=== PATIENT | female | born 1960 | race Caucasian/White ===

== ENCOUNTER → 2016-04-17 | Outpatient (CLI) | payer BC, OTHER ==
[~2016-04-17] MED LIST: LIDOCAINE 1% MDV 20ML VIAL As Ordered ONE
--- NOTE | 2016-04-17 12:09 | REP ---
Digital diagnostic unilateral right breast mammography: With CAD. Two views. History: Marker clip placement views. The patient is status post stereotactic needle biopsy for microcalcifications upper outer quadrant right breast. Comparison mammography March 26, 2016. Findings: The marker clip is seen in good position relative to remaining microcalcifications from the target grouping in the upper outer quadrant of the right breast. There is no visible hematoma. Impression: Marker clip in good position. Signed by Natanael Hill MD 04/17/2016 12:33 P
--- NOTE | 2016-04-17 12:46 | REP ---
SPECIMEN RADIOGRAPHY RIGHT BREAST: HISTORY: Micro calcific grouping right breast. The patient status post stereotactic needle biopsy. Comparison mammography is from March 26, 2016. FINDINGS: Specimen radiography demonstrates innumerable microcalcifications from the target grouping in each of the removed specimens. IMPRESSION: Specimen radiography shows abundant microcalcifications. Signed by Natanael Hill MD 04/17/2016 12:50 P
--- NOTE | 2016-04-17 19:37 | REP ---
STEREOTACTIC RIGHT BREAST BIOPSY: The procedure was performed under the direct supervision of Dr. Hill. The risks and benefits of the procedure were explained to the patient and informed consent was obtained. A craniocaudal approach was utilized. The calcifications were localized using stereotactic mammographic guidance. The skin was prepped and draped in a sterile fashion. 1% lidocaine was used as a local anesthetic. A 10-gauge suction-assisted Mammotome needle was inserted and 6 core biopsy samples were obtained. Specimen radiograph demonstrates the presence of calcifications to be within the specimen. A marker clip was placed at the biopsy site. The patient tolerated the procedure well and there were no immediate complications. After the appropriate amount of monitored convalescence the patient was discharged from the department. Reviewed by VALENTE Roach 04/18/2016 02:12 PEdited and Signed by Natanael Hill MD 04/18/2016 02:25 P
== END ==
LOC: M RADPRO 10:27
PROVIDERS: ATTEND Surgery
DX: D05.11 Intraductal carcinoma in situ of right breast (principal)

== ENCOUNTER → 2016-05-08 | Day surgery (SDC) | payer BC, OTHER ==
[~2016-05-08] VITALS: Ht 160 cm; Wt 65.8 kg
[~2016-05-08] MED LIST changes: +ASPI1TAB24 PO; +BUPIVACAINE HCL 0.25% 30 ML VIAL As Ordered ONE; +BUPIVACAINE HCL 0.25% 30 ML VIAL XX ONE; +CITRTAB18 PO; +FISH1000 PO; +GLYCOPYRROLATE INJ 0.2 MG/ML 2 ML VIAL As Ordered ONE; +HYDROmorphone HCL 2 MG/ML 1ML VIAL (J1170) As Ordered ONE; +LIDOCAINE 2% INJ 100 MG/5 ML SDV (FOR ANES.) As Ordered ONE; +LR 1,000 ML IV SCH; +METHYLENE BLUE 1% 10 ML VIAL (Q9968) As Ordered ONE; +MIDAZOLAM INJ 2 MG/2 ML VIAL (J2250) As Ordered ONE; +MORPHINE 2 MG/ML 1ML SYRINGE IV PRN; +NEOSTIGMINE 1MG/ML 5 ML SYRINGE (J2710) As Ordered ONE; +NORCO, ANEXSIA 5/325MG TABLET (HYDROcodone/ACETAMINOPHEN) As Ordered ONE; +NORCO, ANEXSIA 5/325MG TABLET (HYDROcodone/ACETAMINOPHEN) PO PRN; +NORCOTAB PO; +ONDANSETRON 4MG/2ML VIAL (J2405) As Ordered ONE; +ONDANSETRON 4MG/2ML VIAL (J2405) IV PRN; +PROPOFOL 200 MG/20 ML VIAL As Ordered ONE; +SCOPOLAMINE 1.5 MG TRANSDERMAL As Ordered ONE; +SCOPOLAMINE 1.5 MG TRANSDERMAL TOP ONE; +dexameTHASONE 4 MG/ML 1ML VIAL (J1100) As Ordered ONE; +ePHEDrine SULFATE 25 MG/5 ML(5MG/ML) SYRINGE As Ordered ONE; +fentaNYL 100 MCG/2 ML INJECTION (J3010) As Ordered ONE; +fentaNYL 100 MCG/2 ML INJECTION (J3010) IV PRN
--- NOTE | 2016-05-08 14:44 | REP ---
RIGHT BREAST LOCALIZATION: The procedure was performed under the direct supervision of Dr. Calvin. The patient is status post right breast stereotactic biopsy performed on 04/17/2016. A marker clip was placed at the biopsy site. The risks and benefits of the procedure were explained to the patient, and informed consent was obtained. A lateral-medial approach was utilized. The marker clip was localized using mammographic guidance. The skin was prepped and draped in a sterile fashion. 1% Xylocaine was used as a local anesthetic. A 7.5 cm [place] needle wire system was inserted. Followup mammographic images demonstrate good needle placement. The patient tolerated the procedure well, and there were no immediate complications. Reviewed by VALENTE Roach 05/08/2016 04:34 PEdited and Signed by Raf Calvin MD 05/08/2016 05:26 P
--- NOTE | 2016-05-08 15:24 | REP ---
SPECIMEN RADIOGRAPH RIGHT BREAST: 05/08/2016 CLINICAL HISTORY: Pleomorphic microcalcifications in the right breast, upper outer quadrant. A single specimen with hookwire component within the breast and the biopsy clip as well. The pleomorphic butterfly-shaped broad group of calcifications in this region appear to be entirely within the specimen. I communicated by phone to the attending surgeon in the operating room with this finding. IMPRESSION: 1. Status post excisional biopsy with a broad area of pleomorphic microcalcifications targeted included within the submitted specimen. Specimen was forwarded to the laboratory for pathologic analysis. Signed by Raf Calvin MD 05/08/2016 05:47 P
[2016-05-08 18:15] VITALS: BP 108/85
--- NOTE | 2016-05-10 05:49 | RO ---
DATE OF PROCEDURE: 05/08/2016 PREOPERATIVE DIAGNOSIS: Ductal carcinoma in situ of right breast. POSTOPERATIVE DIAGNOSIS: Ductal carcinoma in situ of right breast. PROCEDURE PERFORMED: Right partial mastectomy with needle localization. SURGEON: Dave Walker MD RESIDENTIAL CONCIERGE: Mile Srinivasan NP ANESTHESIA: General. INDICATIONS FOR THE PROCEDURE: The patient is a 55-year-old woman who on routine mammogram was found to have a grouping of calcifications in the upper outer quadrant of the right breast. A stereotactic biopsy revealed ductal carcinoma in situ. The patient is now for a needle-localized wide excision as a partial mastectomy. OPERATIVE PROCEDURE: The patient was transported to the x-ray department where a localizing wire was placed in the right breast. She was then brought back. She was placed under general anesthesia and the right breast and chest wall were then prepped and draped in a sterile fashion. Inspection revealed the guidewire entering the upper outer quadrant of the right breast at approximately the 9:30 position about 7-8 cm from the edge of the areola. The wire was directed primarily medially and very slightly posteriorly. The skin marker was used to outline a radially oriented incision. A small elliptical incision was made about the entry site of the guidewire. This was about 3-4 cm in length x 1 cm in width. The incision was then extended both medially and laterally and additional centimeter or two. The skin edges were elevated above and below this line of excision using the cautery. The incision was then deepened through the underlying fatty and breast tissue. A portion of tissue, approximately 7 cm x 5 cm x 4 cm, was excised with hemostasis ensured with electrocautery. The guidewire was completely surrounded by a broad area of breast tissue on all sides. There were several cysts containing typical breast cyst fluid entered in the course of the dissection, particularly in the deeper more central portions of the breast tissue. The specimen was marked using the standard marking system of the vector margin marker system. I then attempted to use the GuidesMob device to assess the adequacy of the excision. Unfortunately, I could not identify the calcifications and could not adjust the contrast on the images enough to get satisfactory imaging. The specimen was therefore sent down to the x-ray department. I spoke with Dr. Raf Calvin of radiology to request that he obtain specimen mammograms in the department. He called me back shortly thereafter to indicate that the specimen nicely included a broad area of calcifications noted initially on the patient's mammography. (dictation cut off) that all of the calcifications had been removed but he felt that certainly a large majority had been. The specimen was then forwarded to the lab. I inspected the wound. There was primarily dense breast tissue at the cut edges of the breast tissue. I elected to take another small portion of tissue at the inferior margin and also from the medial margin. These two specimens were about 3 x 3-4 cm and perhaps 5-6 mm thick. These were marked with the margin marker system and sent separately as the inferior margin and the medial margin. After ensuring hemostasis, I felt that the wound was large enough to benefit from placement of a drain. A 15-Iranian Kale drain was therefore placed through the lateral posterior most aspect of the wound. The edges of the breast tissue were approximated slightly using several buried sutures of #3-0 Vicryl. The skin and subcutaneous tissues were then approximated with buried sutures of #3-0 Vicryl and a running subcuticular suture of #4-0 Vicryl. The drain was sutured to the skin with a #2-0 silk. Steri-Strips were applied to the skin incision. The chlorhexidine gluconate OpSite was applied at the site of the drain. Approximately 10 mL of 0.25% Marcaine were infiltrated along the skin edges and around the drain site. The wound was covered with a bulky bandage held in place with tape. The patient tolerated the procedure well without apparent complication. She was awakened in the operating room, extubated and moved to the recovery room in stable condition.
== END | disposition home or self-care (01) ==
LOC: M SDC 08:54
PROVIDERS: ATTEND Surgery
DX: C50.411 Malignant neoplasm of upper-outer quadrant of right female breast (principal); R92.0 Mammographic microcalcification found on diagnostic imaging of breast; N60.12 Diffuse cystic mastopathy of left breast; N60.11 Diffuse cystic mastopathy of right breast; M54.5 Low back pain; R51 Headache; Z86.718 Personal history of other venous thrombosis and embolism; Z86.711 Personal history of pulmonary embolism; Z79.82 Long term (current) use of aspirin
CPT/HCPCS: 19301; 72265; 76098; 88305; 88307; 88341; 88342; J1100; J1170; J2250; J2405; J2710; J3010; Q9968

== ENCOUNTER → 2016-05-18 | Day surgery (SDC) | payer BC, OTHER ==
[~2016-05-18] VITALS: Ht 160 cm; Wt 65.8 kg
[~2016-05-18] MED LIST changes: +BUPIVACAINE HCL 0.25% 30 ML VIAL SC ONE; -BUPIVACAINE HCL 0.25% 30 ML VIAL XX ONE; -HYDROmorphone HCL 2 MG/ML 1ML VIAL (J1170) As Ordered ONE; -LIDOCAINE 1% MDV 20ML VIAL As Ordered ONE; +LIDOCAINE 1% SDV INJ 30 ML VIAL As Ordered ONE; +LIDOCAINE 1% SDV INJ 30 ML VIAL XX ONE; -METHYLENE BLUE 1% 10 ML VIAL (Q9968) As Ordered ONE; +METOCLOPRAMIDE INJ 10MG/2ML VIAL (J2765) As Ordered ONE; +METOCLOPRAMIDE INJ 10MG/2ML VIAL (J2765) IV PRN; -MORPHINE 2 MG/ML 1ML SYRINGE IV PRN; -NORCO, ANEXSIA 5/325MG TABLET (HYDROcodone/ACETAMINOPHEN) As Ordered ONE; +PERCOCET 5MG/325MG TAB As Ordered ONE; +PERCOCET 5MG/325MG TAB PO PRN; +ROCURONIUM BROMIDE 50 MG/5 ML VIAL As Ordered ONE; -ePHEDrine SULFATE 25 MG/5 ML(5MG/ML) SYRINGE As Ordered ONE; +fentaNYL 250 MCG/5 ML INJECTION (J3010) As Ordered ONE
[2016-05-18 21:12] VITALS: BP 120/75
--- NOTE | 2016-05-21 09:55 | REP ---
SPECIMEN RADIOGRAPHY RIGHT BREAST: THREE VIEWS. HISTORY: Right breast DCIS. FINDINGS: Three radiographs of an excised specimen demonstrate scattered coarse macrocalcifications. No malignant-type microcalcifications are appreciated. Signed by Natanael Hill MD 05/21/2016 02:28 P
--- NOTE | 2016-05-22 11:32 | RO ---
DATE OF PROCEDURE: 05/21/2016 PREPROCEDURE DIAGNOSIS: Ductal carcinoma in situ of right breast. POSTPROCEDURE DIAGNOSIS: Residual ductal carcinoma in situ of right breast. PROCEDURE PERFORMED: Wide excision of biopsy cavity (partial mastectomy) of right breast. SURGEON: Dr. Dave Walker ANESTHESIA: General. INDICATIONS FOR PROCEDURE: The patient is a very pleasant 55-year-old woman who on routine mammogram was found to have a fairly broad area of calcifications in the lateral aspect of the right breast. Stereotactic biopsy revealed extensive ductal carcinoma in situ. On May 08, she underwent a needle-localized right partial mastectomy at about the 9 to 9:30 position of the right breast. Her specimen revealed extensive ductal carcinoma in situ. Additional portions of tissue were excised at the medial and inferior margins and the margins were involved by residual ductal carcinoma in situ. She is now for a further excision. DESCRIPTION OF PROCEDURE: The patient was placed under general endotracheal anesthesia. The patient's right breast and chest wall were prepped and draped in sterile fashion. The patient's previous incision, which was oriented to radial fashion at about the 09:30 position was opened. A small amount of old blood and fluid was released. Several deeper sutures were removed. The site of the biopsy was identified. The incision was extended additionally toward the edge of the areola. The skin and subcutaneous tissues were elevated off of the underlying breast tissue over a fairly broad area. The defect in the disk of breast tissue was identified and using the cautery, the entire margin of this was excised involving the superior, medial, inferior and posterior aspects down to the level of the pectoralis muscle. A margin up to about 1 cm was taken on all sides of the previous biopsy cavity. The specimen was removed and hemostasis was ensured with the electrocautery. The specimen was then oriented off the field and marked using the Vector margin marker system to identify all of the margins. Two BiOptix images were obtained of the specimen. A few very small calcifications were identified in the specimen but these were infrequent. The specimen was then placed in formalin and sent for permanent pathology. Attention was then turned to the large defect in the patient's lateral aspect of the right breast. The breast tissue was elevated off of the pectoral muscle extending medially, superiorly and inferiorly to try to mobilize the remaining breast tissue. This was then approximated with some #2-0 Vicryl sutures. There was still a significant defect in the lateral aspect of the breast. A #15-Thai Kale drain was placed through her previous drain site and directed up posterior to the breast tissue. The skin and subcutaneous tissues were then closed with multiple buried sutures of #3-0 Vicryl. Skin edges were approximated with a running subcuticular #4-0 Vicryl and Steri-Strips. Approximately 20 mL of 0.25% Marcaine were infiltrated around the wound prior to completing the closure. The drain was connected to a [place]sto-Franco bulb. The drain was sutured to the skin with #2-0 silk and a CHG OpSite was applied to the drain site. A bulky bandage was applied over the lateral aspect of the breast. The patient tolerated the procedure well without apparent complication. She was awakened in the operating room, extubated and moved to the recovery room in stable condition.
== END | disposition home or self-care (01) ==
LOC: M SDC 12:46
PROVIDERS: ATTEND Surgery
DX: D05.11 Intraductal carcinoma in situ of right breast (principal); M54.5 Low back pain; R51 Headache; Z79.82 Long term (current) use of aspirin; Z86.711 Personal history of pulmonary embolism
CPT/HCPCS: 19301; 76098; 88305; J0690; J1100; J2250; J2405; J2710; J2765; J3010

== ENCOUNTER → 2016-08-16 | Outpatient (CLI) | payer BC, OTHER ==
[~2016-08-16] MED LIST changes: -BUPIVACAINE HCL 0.25% 30 ML VIAL As Ordered ONE; -BUPIVACAINE HCL 0.25% 30 ML VIAL SC ONE; -GLYCOPYRROLATE INJ 0.2 MG/ML 2 ML VIAL As Ordered ONE; -LIDOCAINE 1% SDV INJ 30 ML VIAL As Ordered ONE; -LIDOCAINE 1% SDV INJ 30 ML VIAL XX ONE; -LIDOCAINE 2% INJ 100 MG/5 ML SDV (FOR ANES.) As Ordered ONE; -LR 1,000 ML IV SCH; -METOCLOPRAMIDE INJ 10MG/2ML VIAL (J2765) As Ordered ONE; -METOCLOPRAMIDE INJ 10MG/2ML VIAL (J2765) IV PRN; -MIDAZOLAM INJ 2 MG/2 ML VIAL (J2250) As Ordered ONE; -NEOSTIGMINE 1MG/ML 5 ML SYRINGE (J2710) As Ordered ONE; -NORCO, ANEXSIA 5/325MG TABLET (HYDROcodone/ACETAMINOPHEN) PO PRN; -ONDANSETRON 4MG/2ML VIAL (J2405) As Ordered ONE; -ONDANSETRON 4MG/2ML VIAL (J2405) IV PRN; -PERCOCET 5MG/325MG TAB As Ordered ONE; -PERCOCET 5MG/325MG TAB PO PRN; -PROPOFOL 200 MG/20 ML VIAL As Ordered ONE; -ROCURONIUM BROMIDE 50 MG/5 ML VIAL As Ordered ONE; -SCOPOLAMINE 1.5 MG TRANSDERMAL As Ordered ONE; -SCOPOLAMINE 1.5 MG TRANSDERMAL TOP ONE; -dexameTHASONE 4 MG/ML 1ML VIAL (J1100) As Ordered ONE; -fentaNYL 100 MCG/2 ML INJECTION (J3010) As Ordered ONE; -fentaNYL 100 MCG/2 ML INJECTION (J3010) IV PRN; -fentaNYL 250 MCG/5 ML INJECTION (J3010) As Ordered ONE
--- NOTE | 2016-08-16 15:01 | RADONC ---
RADIATION ONCOLOGY CONSULTATION NOTE DATE: 08/16/2016 CHART NUMBER: DIAGNOSIS: Right breast cancer. STAGE: 0, [id number]. ECOG PERFORMANCE STATUS: 0 CONSULTATION NOTE: Ms. Mancilla is a very pleasant 55-year-old white female with the diagnosis of what appears to be a stage 0, [id number], moderately differentiated infiltrating ductal carcinoma of the right breast who is presenting to us today status post lumpectomy for consideration of postoperative radiation therapy for conservative breast management. HISTORY OF PRESENT ILLNESS: The patient was in the usual state of health until routine mammogram was undertaken on 03/26/2016 that showed pleomorphic calcifications in the right breast. On 05/08/2016, the patient underwent lumpectomy, and pathology revealed extensive ductal carcinoma in situ which was moderately differentiated. The tumor extended to the margins of resection, although additional tissue was taken. On 05/21/2016, a wide re-excision was done, and no evidence of remaining malignancy was seen. The patient has done well since her re-excision and is now presenting to us for discussion of possible postoperative radiation therapy for conservative breast management. The tumor was noted to be estrogen receptor and progesterone receptor positive. PAST MEDICAL HISTORY: The patient's past medical history is positive for menstrual irregularities. ALLERGIES: The patient has no known drug allergies. SOCIAL HISTORY: The patient does not smoke cigarettes. She drinks approximately two alcoholic beverages a week. FAMILY HISTORY: The patient's family history is positive for a mother with breast cancer at the age of 42 and again at the age of 79. REVIEW OF SYSTEMS: The patient's review of systems is noncontributory. She denies nausea, vomiting, fevers, chills, night sweats, diplopia, headaches, anxiety or depression, anorexia, weight loss, visual disturbances, chest pain, urinary or bowel difficulties, bone pain, or neurological problems. PHYSICAL EXAMINATION The patient is a well-developed, well-nourished woman in no acute distress. HEENT exam is normocephalic, atraumatic. Extraocular movements are intact. There is no palpable cervical, supraclavicular, infraclavicular, axillary, or inguinal lymphadenopathy present. Lungs are clear to auscultation and percussion. Heart has a regular rate and rhythm. Abdomen is benign with no hepatosplenomegaly, masses, or tenderness. Breast examination reveals no masses or discharge bilaterally. Skeletal examination reveals no tenderness to pressure or percussion of the bony skeleton. Extremities reveal no clubbing, cyanosis, or edema. Neurologic exam is grossly intact, as is the remainder of the physical examination. ASSESSMENT: Clearly, the patient is a candidate for external beam radiation therapy, and I have so informed her. I have discussed with the patient in detail the potential benefits as well as possible acute and chronic sequelae of external beam radiation therapy. We discussed logistics of treatment planning, simulation, and subsequent fractionated daily radiation treatments. The patient is scheduled for a work meeting from September 02 through September 05. She wishes to start radiation after that meeting. We, therefore, are scheduling our simulation for the week of August 27, and radiation can begin as soon as she returns from her meeting in [place]. Thank you for allowing us to participate in the care of this very pleasant woman. If I could be of any further assistance or provide you with any information, please feel free to contact me at anytime. cc: MD Dave Springer MD Jill Laureano-Surber, DO
== END ==
LOC: M ONCR 13:12
PROVIDERS: ATTEND Radiology Radiation Oncology
DX: C50.919 Malignant neoplasm of unspecified site of unspecified female breast (principal)

== ENCOUNTER 2016-08-30 10:58 | Outpatient (RCR) | payer BC, OTHER ==
[~2016-08-30 10:58] MED LIST changes: +ASPI-161 PO; -ASPI1TAB24 PO
--- NOTE | 2016-08-30 12:48 | RADONC ---
RADIATION ONCOLOGY SIMULATION NOTE DATE: 08/30/2016 CHART NUMBER: Ms. Martinez was taken to the CT scan for CT simulation of her right breast field. CT was accomplished without difficulty or discomfort. Radiation treatment planning is underway and radiation treatments will begin subsequently. An immobilization device was created and will be used throughout the course of treatment. It was created without difficulty or discomfort. The patient had been given a choice between the Palestinian protocol and traditionally fractionated radiation treatments. Both were explained to her in great detail and she chose the traditional fractionation schedule of 180 cGy a day. I was physically present throughout the course of CT simulation.
== END 2016-09-14 ==
LOC: M ONCR 10:58
PROVIDERS: ATTEND Radiology Radiation Oncology
DX: D05.11 Intraductal carcinoma in situ of right breast (principal)

== ENCOUNTER → 2016-08-30 | Outpatient (CLI) | payer BC, OTHER ==
[2016-08-30 12:50] LABS: MEAN CORPUSCULAR HEMOGLOBIN 29.4 pg (27.0-33.0); MEAN CORPUSCULAR HGB CONC 33.3 g/dl (32.0-36.5); MEAN CORPUSCULAR VOLUME 88.2 fl (80.0-96.0); RED CELL DISTRIBUTION WIDTH 12.9 % (11.5-14.5); WHITE BLOOD COUNT 5.7 K/mm3 (4.0-10.0)
== END ==
LOC: M RAD 10:39
PROVIDERS: ATTEND Radiology Radiation Oncology
DX: C50.911 Malignant neoplasm of unspecified site of right female breast (principal)

== ENCOUNTER 2016-09-19 09:24 | Outpatient (RCR) | payer BC, OTHER ==
--- NOTE | 2016-09-21 11:43 | RADONC ---
RADIATION ONCOLOGY PROGRESS NOTE DATE: 09/19/2016 CHART NUMBER: [id number] Ms. Mancilla is presently at a dose of 900 cGy to her right breast and is tolerating treatments quite well at this point with no complaints related to her radiation therapy. She is having no breast or bone pain. The patient's review of systems noncontributory. She denies nausea, vomiting, fevers, chills, night sweats, diplopia, headaches, anxiety or depression, anorexia, weight loss, visual disturbances, chest pain, urinary or bowel difficulties, bone pain, or neurological problems. PHYSICAL EXAMINATION: The patient's skin is in good condition with no evidence of radiation change present. The remainder of her physical exam remains unchanged. Ms. Mancilla is tolerating treatments quite well and radiation will continue as scheduled.
--- NOTE | 2016-09-24 09:56 | RADONC ---
RADIATION ONCOLOGY PROGRESS NOTE DATE: 09/24/2016 CHART NUMBER: [id number] Mrs. Mancilla is presently at a dose of 1440 centigrade to her right breast and is tolerating treatments quite well at this point with no complaints related to her radiation therapy. She is having no breast or bone pain. REVIEW OF SYSTEMS: The patient's review of systems is noncontributory. Denies nausea, vomiting, fevers, chills, night sweats, diplopia, headaches, anxiety or depression, anorexia, weight loss, visual disturbances, chest pain, urinary or bowel difficulties, bone pain, or neurological problems. PHYSICAL EXAMINATION: The patient's skin is in good condition with no evidence of radiation change present. There is no moist or dry desquamation. The remainder of physical exam remains unchanged. Ms. Mancilla is tolerating treatments quite well and radiation will continue as scheduled.
--- NOTE | 2016-10-01 09:45 | RADONC ---
RADIATION ONCOLOGY PROGRESS NOTE DATE: 10/01/2016 CHART NUMBER: [id number]. Ms. Mancilla is presently at a dose of 2340 centigrade to her right breast and is tolerating treatments quite well at this point with no complaints related to her radiation therapy. She is having no breast or bone pain. REVIEW OF SYSTEMS: The patient's review of systems is noncontributory. Denies nausea, vomiting, fevers, chills, night sweats, diplopia, headaches, anxiety or depression, anorexia, weight loss, visual disturbances, chest pain, urinary or bowel difficulties, bone pain, or neurological problems. PHYSICAL EXAMINATION: The patient's skin is in good condition with no evidence of radiation change present. There are a few small lesions that are pinkish in color. They appear to follow a straight line. They are not tender. The remainder of her physical exam remains unchanged. The patient is tolerating treatments quite well and radiation will continue as scheduled. We will continue to follow these new small lesions. They are nondescript at this point, but my concern would be shingles. They are nontender. We will continue to follow these and radiation will continue in the meantime.
--- NOTE | 2016-10-08 10:03 | RADONC ---
RADIATION ONCOLOGY PROGRESS NOTE DATE: 10/08/2016 CHART NUMBER: [id number] Ms. Mancilla is presently at a dose of 3240 cGy to her right breast and is tolerating treatments quite well at this point with no significant difficulties related to her radiation therapy other than some mild skin tenderness. REVIEW OF SYSTEMS: The patient's review of systems is positive for some skin tenderness but is otherwise noncontributory. She denies nausea, vomiting, fevers, chills, night sweats, diplopia, headaches, anxiety or depression, anorexia, weight loss, visual disturbances, chest pain, urinary or bowel difficulties, bone pain, or neurological problems. PHYSICAL EXAMINATION: The patient's skin shows some erythema and tanning present but overall is in good condition with no evidence of moist or dry desquamation. The remainder of her physical exam remains unchanged. Ms. Mancilla is tolerating her treatments quite well and radiation will continue as scheduled.
--- NOTE | 2016-10-10 10:01 | RADONC ---
RADIATION ONCOLOGY STIMULATION NOTE: DATE: 10/10/2016 CHART NUMBER: [id number]. STIMULATION NOTE: Ms. Mancilla was taken to linear accelerator today for clinical setup of her right breast electron beam boost field. Setup was accomplished without difficulty or discomfort. Radiation treatment planning is underway and radiation treatments will begin subsequently. Immobilization device was created without difficulty or discomfort. It will be used throughout the course of treatment. I was physically present throughout the course of electron beam setup.
--- NOTE | 2016-10-15 10:57 | RADONC ---
RADIATION ONCOLOGY PROGRESS NOTE: DATE: 10/15/2016 CHART NUMBER: [id number] Ms. Macnilla is presently at a dose of 4140 cGy to her right breast and is tolerating treatments quite well at this point with no significant difficulties related to her radiation therapy other than some tenderness of the skin. REVIEW OF SYSTEMS: The patient's review of systems is positive for some skin tenderness but is otherwise noncontributory. She denies nausea, vomiting, fevers, chills, night sweats, diplopia, headaches, anxiety or depression, anorexia, weight loss, visual disturbances, chest pain, urinary or bowel difficulties, bone pain, or neurological problems. PHYSICAL EXAMINATION: The patient's skin shows some erythema present but overall is in good condition with no evidence of moist or dry desquamation. The remainder of her physical exam remains unchanged. Ms. Mancilla is tolerating treatments quite well and radiation will continue as scheduled.
== END 2016-10-15 ==
LOC: M ONCR 09:24
PROVIDERS: ATTEND Radiology Radiation Oncology
DX: D05.11 Intraductal carcinoma in situ of right breast (principal)

== ENCOUNTER → 2016-10-12 | Outpatient (REF) | payer OTHER, BC ==
[~2016-10-12] MED LIST changes: +SILV-4 TOP
== END ==
LOC: M LAB REF 16:06
PROVIDERS: ATTEND Family Medicine
DX: D22.22 Melanocytic nevi of left ear and external auricular canal (principal)

== ENCOUNTER 2016-10-16 10:56 | Outpatient (RCR) | payer BC, OTHER ==
[~2016-10-16 10:56] MED LIST changes: -SILV-4 TOP
[2016-10-22] MEDS ORDERED: SILV-4 TOP (08:17)
--- NOTE | 2016-10-22 09:50 | RADONC ---
RADIATION ONCOLOGY PROGRESS NOTE: DATE: 10/22/2016 CHART NUMBER: [id number] Ms. Mancilla is presently at a dose of 5060 cGy to her right breast primary site and is tolerating treatments quite well at this point with no significant difficulties related to her radiation therapy other than some skin tenderness. REVIEW OF SYSTEMS: The patient's review of systems is positive for some tenderness of the skin but is otherwise noncontributory. She denies nausea, vomiting, fevers, chills, night sweats, diplopia, headaches, anxiety or depression, anorexia, weight loss, visual disturbances, chest pain, urinary or bowel difficulties, bone pain, or neurological problems. PHYSICAL EXAMINATION: The patient's skin overall is in good condition with some small areas of desquamation in the inframammary region. There is erythema and tanning present. The remainder of her physical exam remains unchanged. Ms. Martinez is tolerating treatments quite well and radiation will continue as scheduled. The skin in the present boost site is in good condition. I have sent in a prescription for Silvadene to be applied topically in the inframammary region.
--- NOTE | 2016-10-29 10:03 | RADONC ---
RADIATION ONCOLOGY TREATMENT SUMMARY DATE: 10/29/2016 CHART NUMBER: [id number] DIAGNOSIS: Right breast cancer. STAGE: 0, [id number]. ECOG PERFORMANCE STATUS: 0 TREATMENT SUMMARY: Ms. Mancilla is a very pleasant 55-year-old white female with the diagnosis of what appears to be a stage 0, [id number] moderately differentiated infiltrating ductal carcinoma of the right breast who presented to us status post lumpectomy for consideration of postoperative radiation therapy for conservative breast management. We treated the patient to the right breast for a total dose of 4860 cGy delivered in 27 fractions of 180 cGy each over 38 elapsed days from 09/11/2016 through 10/19/2016. The patient's right breast was treated on a linear accelerator utilizing a 6 MV photon beam via medial and lateral tangential patino. Following completion of 4860 cGy to the entire right breast, the primary site was boosted for an additional 1200 cGy delivered in 6 fractions of 200 cGy each from 10/22/2016 through 10/29/2016. The primary site boost was treated on a linear accelerator utilizing a 9 MeV electron beam prescribed a 90% isodose line via an en phos technique. This brought the primary site to a total dose of 6060 cGy delivered in 33 fractions over 48 elapsed days from 09/11/2016 through 10/29/2016. Ms. Mancilla tolerated her treatments quite well and was able complete therapy as prescribed without interruption. I have scheduled the patient see me again in 1 month for further followup. She will also continue to be followed by her other physicians as well. cc: Ana Kauffman MD, FACP MD Reena Ross DO
[2017-01-28] MEDS ORDERED: FISH500C PO (09:27)
[2017-01-28] MEDS ORDERED: CALC500T49 PO (09:27)
== END 2016-11-15 ==
LOC: M ONCR 10:56
PROVIDERS: ATTEND Radiology Radiation Oncology
DX: D05.11 Intraductal carcinoma in situ of right breast (principal)

== ENCOUNTER → 2016-11-28 | Outpatient (CLI) | payer BC, OTHER ==
[~2016-11-28] MED LIST changes: +CALC500T49 PO; +FISH500C PO; +SILV-4 TOP
--- NOTE | 2016-11-29 08:37 | RADONC ---
RADIATION ONCOLOGY FOLLOWUP NOTE DATE: 11/28/2016 CHART NUMBER: [id number]. DIAGNOSIS: Right breast cancer. STAGE: 0, [id number]. ECOG PERFORMANCE STATUS: Zero. FOLLOWUP NOTE: Ms. 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 The patient presents today reporting that she is doing quite well with no complaints at this time related to her radiation therapy or disease. She has no breast or bone pain. REVIEW OF SYSTEMS: The patient's review of systems is noncontributory. Denies nausea, vomiting, fevers, chills, night sweats, diplopia, headaches, anxiety or depression, anorexia, weight loss, visual disturbances, chest pain, urinary or bowel difficulties, bone pain, or neurological problems. PHYSICAL EXAMINATION: The patient is a well-developed, well-nourished, 56-year-old white female in no acute distress. HEENT exam is normocephalic, atraumatic. Extraocular movements are intact. There is no palpable cervical, supraclavicular, infraclavicular, axillary, or inguinal lymphadenopathy present. Lungs are clear to auscultation and percussion. Heart has a regular rate and rhythm. Abdomen is benign with no hepatosplenomegaly, masses, or tenderness. Breast examination reveals no masses or discharge bilaterally. Skeletal examination reveals no tenderness to pressure or percussion of the bony skeleton. Extremities reveal no clubbing, cyanosis, or edema. Neurologic exam is grossly intact, as is the remainder of the physical examination. ASSESSMENT: The patient is clinically ADAIR at this time and will be seen by us again in 6 months for further followup. She will also continue to be followed by her other physicians as well. cc: Ana Kauffman MD, FACP MD Reena Ross DO
== END ==
LOC: M ONCR 15:11
PROVIDERS: ATTEND Radiology Radiation Oncology
DX: D05.11 Intraductal carcinoma in situ of right breast (principal)

== ENCOUNTER → 2016-12-17 | Outpatient (CLI) | payer BC, OTHER ==
--- NOTE | 2016-12-17 10:13 | REP ---
Left shoulder three views: Mineralization and joint spaces are normal. No calcifications. There is no fracture or dislocation. No foreign body. Impression: Negative left shoulder. Signed by Pradeep Szymanski MD 12/17/2016 10:04 A
== END ==
LOC: M SMT 09:06
PROVIDERS: ATTEND Family Medicine
DX: M25.512 Pain in left shoulder (principal)

== ENCOUNTER 2017-02-05 08:03 | Day surgery (SDC) | payer BC, OTHER ==
[~2017-02-05] VITALS: Ht 160 cm; Wt 63.0 kg
[2017-02-05] MEDS ORDERED: LR 1,000 ML IV SCH (08:15)
[2017-02-05] MEDS ORDERED: LIDOCAINE 2% INJ 100 MG/5 ML SDV (FOR ANES.) As Ordered ONE (09:52)
[2017-02-05] MEDS ORDERED: PROPOFOL 200 MG/20 ML VIAL As Ordered ONE (09:52)
[2017-02-05] MEDS ORDERED: ePHEDrine SULFATE 25 MG/5 ML(5MG/ML) SYRINGE As Ordered ONE (09:52)
--- NOTE | 2017-02-05 10:17 | ROOR ---
Patient Name: Jaye Mancilla Procedure Date: 02/05/2017 9:47 AM Date of : 1960 Age: 56 Room: [facility] Gender: Female Note Status: Finalized Procedure: Colonoscopy Indications: Screening for colorectal malignant neoplasm, This is the patient's first colonoscopy Providers: Dave Walker MD Referring MD: Reena JHA DO Requesting Provider: Medicines: Monitored Anesthesia Care Complications: No immediate complications. Procedure: Pre-Anesthesia Assessment: - Prior to the procedure, a History and Physical was performed, and patient medications and allergies were reviewed. The patient is competent. The risks and benefits of the procedure and the sedation options and risks were discussed with the patient. All questions were answered and informed consent was obtained. Patient identification and proposed procedure were verified by the physician, the nurse and the anesthesiologist in the procedure room. Mental Status Examination: alert and oriented. Airway Examination: normal oropharyngeal airway and neck mobility. CV Examination: regular rate and rhythm. Prophylactic Antibiotics: The patient does not require prophylactic antibiotics. Prior Anticoagulants: The patient has taken no previous anticoagulant or antiplatelet agents. ASA Grade Assessment: II - A patient with mild systemic disease. After reviewing the risks and benefits, the patient was deemed in satisfactory condition to undergo the procedure. The anesthesia plan was to use monitored anesthesia care (MAC). Immediately prior to administration of medications, the patient was re-assessed for adequacy to receive sedatives. The heart rate, respiratory rate, oxygen saturations, blood pressure, adequacy of pulmonary ventilation, and response to care were monitored throughout the procedure. The physical status of the patient was re-assessed after the procedure. The Colonoscope was introduced through the anus and advanced to the cecum, identified by appendiceal orifice and ileocecal valve. The colonoscopy was performed without difficulty. The patient tolerated the procedure well. The quality of the bowel preparation was excellent. Findings: The perianal and digital rectal examinations were normal. The colon (entire examined portion) appeared normal. Impression: - The entire examined colon is normal. - No specimens collected. Recommendation: - Discharge patient to home. - Resume previous diet. - Continue present medications. - Repeat colonoscopy in 10 years for screening purposes. Dave Walker MD 02/05/2017 10:17:00 AM Number of Addenda: 0 Note Initiated On: 02/05/2017 9:47 AM Estimated Blood Loss: Estimated blood loss: none.
[2017-02-05 10:35] VITALS: BP 122/72
== END 2017-02-05 11:00 | disposition home or self-care (01) ==
LOC: M OPP 08:03
PROVIDERS: ATTEND Surgery
DX: Z12.11 Encounter for screening for malignant neoplasm of colon (principal); Z86.718 Personal history of other venous thrombosis and embolism; M54.5 Low back pain; R51 Headache; Z85.3 Personal history of malignant neoplasm of breast; Z92.3 Personal history of irradiation

== ENCOUNTER → 2017-03-28 | Outpatient (CLI) | payer BC, OTHER | LOC: M RAD 09:47 | DX: Z12.31 Encounter for screening mammogram for malignant neoplasm of breast (principal) | CPT/HCPCS: 77067 ==

== ENCOUNTER → 2017-12-18 | Outpatient (CLI) | payer BC, OTHER | LOC: M ONCR 15:14 | DX: C50.911 Malignant neoplasm of unspecified site of right female breast (principal) | CPT/HCPCS: G0463 ==

== ENCOUNTER → 2018-04-03 | Outpatient (CLI) | payer BC, OTHER ==
--- NOTE | 2018-04-03 17:38 | REPMRS ---
Patient History The patient states she had a clinical breast exam in 2017. Benign radio exam breast specimen, May 18, 2016. Malignant radio exam breast specimen, May 08, 2016. Malignant localization of breast nodule of the right breast, May 08, 2016. Malignant radio exam breast specimen of the right breast, April 17, 2016. Malignant stereotatic loc for ea lesion of the right breast, April 17, 2016. Digital Mammo Screening Bilat: April 03, 2018 - Exam #: [id number] Bilateral CC and MLO view(s) were taken. Technologist: Juhi De Leon, Technologist Prior study comparison: March 28, 2017, bilateral digital mammo screening bilat performed at [facility]. March 26, 2016, digital mammo diagnostic bilateral, performed at [facility]. FINDINGS: The breast tissue is heterogeneously dense. This may lower the sensitivity of mammography. There are stable post-treatment changes in the upper outer quadrant of the right breast with some diffuse dermal thickening consistent with prior radiation therapy. The previously noted malignant microcalcifications have been removed from the right breast. There is a new grouping of microcalcifications inferiorly and laterally in the left breast on today's screening images which merit further evaluation. There is a moderate amount of heterogeneously dense fibroglandular tissue which is fairly symmetric. There is no interval development of dominant mass, architectural distortion, or clustered microcalcification typical of malignancy. There has been no change in the appearance of the mammogram from the prior studies. 3-D tomosynthesis shows no additional findings. Assessment: BI-RADS/ACR category 0 mammogram, incomplete. BIRADS/ACR category zero mammogram, incomplete. Additional imaging and/or prior images needed. Recommendation Special view mammogram of the left breast. This mammogram was interpreted with the aid of an FDA-approved computer-aided dectection system. Electronically Signed By: Kevin Hill MD 04/03/18 [id number]
== END ==
LOC: M RAD 12:59
PROVIDERS: ATTEND Radiology Radiation Oncology
DX: Z12.31 Encounter for screening mammogram for malignant neoplasm of breast (principal); Z85.3 Personal history of malignant neoplasm of breast; R92.0 Mammographic microcalcification found on diagnostic imaging of breast

== ENCOUNTER → 2018-04-07 | Outpatient (CLI) | payer BC, OTHER ==
--- NOTE | 2018-04-07 15:38 | REP ---
Digital diagnostic unilateral left breast mammography with CAD: History: Screening mammography from April 03, 2018 was BI-RADS category 0 because of a grouping of new microcalcifications inferolaterally positioned in the left breast. Diagnostic imaging was recommended. Comparison is also made with the March 28, 2017 prior study. Findings: Magnified focal spot compression CC, MLO and true MLO views were obtained. These confirm the presence of a new microcalcifications inferiorly and laterally in a grouping spanning approximately 1.5 cm. They have a somewhat smudgy ill-defined appearance on CC projection image. On the horizontal beam true MLO view. They are seen to a demonstrate menisci consistent with benign milk of calcium type microcalcifications. No suspicious microcalcifications are seen. The true MLO view shows a few other scattered milk of calcium calcifications more superiorly. Impression: BI-RADS/ACR category 2 mammogram. Benign finding(s). Routine annual screening mammography (for women over age 40). Milk of calcium type benign calcifications inferolateral aspect left breast. No suspicious abnormality. BI-RADS category 2 benign findings. Repeat bilateral screening mammography recommended 1 year. This mammogram was interpreted with the aid of an FDA-approved computer-aided detection system. The patient states she had a clinical breast exam in December 2017. The patient letter being requested is M1 dense . Electronically Signed by Natanael Hill MD 04/07/2018 06:13 P
== END ==
LOC: M RAD 13:41
PROVIDERS: ATTEND Radiology Radiation Oncology
DX: R92.2 Inconclusive mammogram (principal)

== ENCOUNTER → 2018-04-14 | Outpatient (REF) | payer OTHER | LOC: M LAB REF 18:40 | PROVIDERS: ATTEND Family Medicine | DX: N23 Unspecified renal colic (principal) ==

== ENCOUNTER → 2020-04-06 | Outpatient (CLI) | payer BC, OTHER ==
[~2020-04-06] MED LIST changes: +HYDR-3715 PO; -NORCOTAB PO
--- NOTE | 2020-04-06 11:00 | RADONC ---
Radiation Oncology Hx/FUP Radiation Oncology Hx/FUP Date of Service: Apr 06, 2020 Pt Identifier Jaye Mancilla is a 59 year old female seen for a followup visit today at the department of radiation oncology for a history of right breast DCIS [id number] ER/ID+ HER2- Grade 2 s/p lumpectomy on 05/08/16 and margin directed re- excision on 05/21/16. This was followed by adjuvant RT 48.6 Gy in 27 fractions to the right whole breast followed by 12 Gy in fractions to the tumor bed completed 10/29/16. She has not been on adjuvant AI due to a history of blood clots while on OCPs. Additionally she has a strong family history of breast cancer despite negative genetic testing (several of her sisters affected). Diagnosis/Treatment History Oncologic History As above Recent diagnostics: 03/21/20 mammogram @ [facility] Dense breast tissue Left breast with posterolateral calcifications Recommend BL breast US and diagnostic left mammogram 3-4 months Interval History She feels well overall. Has some mild tenderness in the right central breast when she does self exams. No skin concerns. No cosmetic concerns. Has no ROM impairment. Energy level, appetite and weight stable. Current Therapy Surveillance Stage Stage 0 right breast DCIS [id number] ER/ID+ HER2- Grade 2 Social History: Non smoker Drinks 2 drinks per week Allergies / Meds Allergies: Coded Allergies: No Known Allergies (Unverified , 04/30/16) Home Meds Reported Medications [place]-3/Dha/Epa/Fish Oil (Fish Oil 500 mg Softgel) 500 Mg Cap, 500 MG PO LESLEY YPRN, CAP 01/28/17 Calcium (Calcium) 500 Mg Tab, 500 MG PO DAILY, TAB 01/28/17 Review of Systems Review of Systems Constitutional: Denies: Chills, Fatigue, Weight Loss Eyes: Denies: Pain HEENT: Denies: Head Aches Skin: Denies: Rash, Lesions Breast: Reports: Breast Pain or Tenderness; Denies: New Breast Lumps / Masses, Nipple Retraction, Nipple Discharge, Breast Skin Changes Pulmonary: Denies: Dyspnea, Cough Cardiovascular: Denies: Chest Pain Gastrointestinal: Denies: Nausea, Vomiting Genitourinary: Denies: Dysuria Hematologic: Denies: Bruising Endocrine: Denies: Polydipsia Musculoskeletal: Denies: Neck pain, Arm pain, Back pain Neurological: Denies: Weakness, Numbness Psych: Reports: Mood Normal Physical Examination Vital Signs Wt 165 lb T 98.1 P 64 RR 16 BP 120/82 O2 100% Pain 0 Fatigue 0 General Exam: Positive: Alert, Cooperative, No Acute Distress Eye Exam: Positive: PERRLA, EOMI ENT EXAM: Positive: Atraumatic Neck Exam: Positive: Supple; Negative: Lymphadenopathy Chest Exam: Positive: Normal air movement Heart Exam: Positive: Rate Normal, Regular Rhythm Breast Exam: Positive: Symmetric Bilaterally, Other Breast Findings (Left lateral breast incision no underlying nodularity or fibrosis. BL breasts and axillae without palpable lesions); Negative: Lumps or Masses, Nipple Retraction, Nipple Discharge, Skin Changes Abdomen Exam: Positive: Soft; Negative: Tenderness Extremity Exam: Negative: Edema Skin Exam: Positive: Nl turgor and temperature Neuro Exam: Positive: Normal Gait, Normal Speech, Cranial Nerves 3-12 NL Psych Exam: Positive: Mental status NL Diagnostic and Laboratory Diagnostic Review Radiologic images, relevant labs and pathology reports were personally reviewed and discussed with Ms. Mancilla. Assessment and Plan Impression Assessment Ms. Mancilla is a 59 year old female with a history of right breast DCIS [id number] ER/ID+ HER2- Grade 2 s/p lumpectomy on 05/08/16 and margin directed re-excision on 05/21/16. This was followed by adjuvant RT 48.6 Gy in 27 fractions to the right whole breast followed by 12 Gy in fractions to the tumor bed completed 10/29/16. She has not been on adjuvant AI due to a history of blood clots while on OCPs. Additionally she has a strong family history of breast cancer despite negative genetic testing (several of her sisters affected). She is doing well overall. She has no late sequelae of RT and no evidence of recurrent or de anne-marie disease on exam today. Her recent mammogram recommended follow up diagnostic mammo on the left and BL breast US. Unclear why the screening center did not proceed with these automatically. I will order the recommended studies for 3 months from now. She has no qualms about obtaining the studies here, which I think is reasonable. I will call her with the results, and if there are no alarming findings I will see her again in 1 year as she is approaching 4 years from completion of treatment. Performance Status ECOG 0 Plan Diagnostic left mammogram and BL breast US in 3 months Will call patient with results Follow up in 1 year Ms. Mancilla was encouraged to call with questions or concerns in the interim period. MAITE JOHNSON MD Apr 06, 2020 11:00
== END ==
LOC: M ONCR 09:33
PROVIDERS: ATTEND General Practice
DX: D05.11 Intraductal carcinoma in situ of right breast (principal)

== ENCOUNTER → 2020-07-04 | Outpatient (CLI) | payer BC ==
--- NOTE | 2020-07-04 10:26 | REP ---
INDICATION: RT BREAST DCIS,F/U LT BREAST CALCIFICATON,DENSE BREAST. COMPARISON: Comparison mammography is reviewed including most recent left breast mammography from [facility] 21 March 2020. Comparison mammography from 07 April 2018, 03 April 2018, 28 March 2017, and 26 March 2016 is also reviewed. TECHNIQUE: Routine views of the left breast are augmented by 3D tomography. Magnified focal spot-compression images are also obtained of the left breast in in the craniocaudal, mediolateral, and mediolateral oblique projection. This mammogram was interpreted with the aid of an FDA-approved computer-aided detection system. FINDINGS: There are non grouped punctate microcalcifications in dense breast stroma on the left. The grouping of microcalcifications observed on March 21, 2020 is no longer apparent. There are only 2 calcifications remaining here. On today's true mL view there is 1 larger calcification which appears show a meniscus. No other evidence of milk of calcium. No poly more fixed or branching groupings of calcifications are seen. Breast parenchyma is heterogeneously dense as before in a pattern which may inhibit the sensitivity of mammography. No mass lesion is seen. No architectural distortion is noted. The [place] volumetric breast density pattern is C. IMPRESSION: BIRADS/ACR category 2 benign left breast mammographic findings.. RECOMMENDATION: Repeat screening mammography recommended in March of 2021.. The patient letter being requested is M1 dense. <Electronically signed by Kevin Hill > 07/04/20 [id number]
--- NOTE | 2020-07-04 11:58 | REP ---
INDICATION: RT BREAST DCIS,F/U LT BREAST CALCIFICATIONS,DENSE BREASTS. COMPARISON: Comparison bilateral sonography 30 March 2016.. TECHNIQUE: Bilateral whole breast screening sonography. FINDINGS: Bilateral whole breast sonography is carried out. Bilateral axillary sonography is included. The right breast is unremarkable. In the right axilla there is a benign lymph node measuring 1.0 x 1.2 x 0.6 cm. There is a 2nd lymph node which also has very thin benign cortex and echogenic hilar fat with overall dimensions are 1.5 x 1.5 x 0.8 cm. In the left breast there is a cystic lesion consistent with clustered microcyst in the 5 o'clock position 5 cm from the nipple with dimensions of 1.0 x 0.3 x 0.7 cm. Similar cysts were identified at 4 o'clock on 2017 left breast sonographic images. At 2 o'clock in the left breast there is also a small clustered microcyst area 6 mm in greatest diameter. These are felt to be benign changes. There are multiple and benign lymph nodes in the left axilla. The largest measures 1.8 x 1.1 x 0.6 cm and 1.1 x 1.1 x 0.7 cm. No cortical thickening. IMPRESSION: BI-RADS category 2 benign findings bilaterally. <Electronically signed by Kevin Hill > 07/04/20 [id number]
== END ==
LOC: M WHC 09:13
PROVIDERS: ATTEND General Practice
DX: D05.11 Intraductal carcinoma in situ of right breast (principal); R92.2 Inconclusive mammogram
CPT/HCPCS: 76642; 77065; G0279

== ENCOUNTER → 2021-05-02 | Outpatient (CLI) | payer BC, OTHER ==
[~2021-05-02] MED LIST changes: +ELIQ2.5T PO; +GABA-283 PO; +LOSA25TA13 PO; +OMEP10CASR PO; +PACE200T PO; +PRAV40TA2 PO
== END ==
LOC: M ONCR 15:10
PROVIDERS: ATTEND General Practice
DX: R92.1 Mammographic calcification found on diagnostic imaging of breast (principal); Z79.899 Other long term (current) drug therapy; Z80.3 Family history of malignant neoplasm of breast; Z85.3 Personal history of malignant neoplasm of breast; Z86.2 Personal history of diseases of the blood and blood-forming organs and certain disorders involving the immune mechanism; Z92.3 Personal history of irradiation

== ENCOUNTER → 2024-01-14 | Outpatient (REF) | payer BC, OTHER ==
[~2024-01-14] MED LIST changes: -ASPI-161 PO; +ASPI-615 PO; -GABA-283 PO; +GABA-284 PO
[2024-01-18 03:13] LABS: IgG P18 AB NON-REACTIVE; IgG P23 AB NON-REACTIVE; IgG P28 AB NON-REACTIVE; IgG P30 AB NON-REACTIVE; IgG P39 AB NON-REACTIVE; IgG P41 AB NON-REACTIVE; IgG P45 AB NON-REACTIVE; IgG P58 AB NON-REACTIVE; IgG P66 AB NON-REACTIVE; IgG P93 AB NON-REACTIVE; IgM P23 AB NON-REACTIVE; IgM P39 AB NON-REACTIVE; IgM P41 AB NON-REACTIVE; LYME IgG WB INTERPRETATION NEGATIVE (NEGATIVE); LYME IgM WB INTERPRETATION NEGATIVE (NEGATIVE)
== END ==
LOC: M LABDRWAD 17:51
PROVIDERS: ATTEND Family Medicine
DX: S70.361A Insect bite (nonvenomous), right thigh, initial encounter (principal); Y92.9 Unspecified place or not applicable; Y93.9 Activity, unspecified; Y99.9 Unspecified external cause status; X58.XXXA Exposure to other specified factors, initial encounter

== ENCOUNTER → 2024-01-14 | Outpatient (REF) | payer BC, OTHER ==
[2024-01-14 19:29] LABS: ALBUMIN 3.8 G/DL (3.2-5.2); BILIRUBIN,DIRECT 0.1 MG/DL (<0.4); BILIRUBIN,TOTAL 0.5 MG/DL (0.3-1.2); TOTAL PROTEIN 7.4 G/DL (5.7-8.2)
== END ==
LOC: M LABDRWAD 17:50
PROVIDERS: ATTEND Nurse Practitioner Family
DX: B35.1 Tinea unguium (principal)

== ENCOUNTER → 2024-02-25 | Outpatient (REF) | payer BC | LOC: M SFHCADAM 15:49 | PROVIDERS: ATTEND Nurse Practitioner Family | DX: Z53.9 Procedure and treatment not carried out, unspecified reason (principal) ==

== ENCOUNTER → 2024-04-09 | Outpatient (REF) | payer BC ==
[2024-04-10 14:29] LABS: ALKALINE PHOSPHATASE 68 U/L (35-104); ALT/SGPT 39 U/L (7.0-40); AST/SGOT 37 U/L (<34); BILIRUBIN,DIRECT < 0.1 MG/DL (<0.4); BILIRUBIN,TOTAL 0.3 MG/DL (0.3-1.2); TOTAL PROTEIN 7.7 G/DL (5.7-8.2)
== END ==
LOC: M SFHCADAM 15:39
PROVIDERS: ATTEND Nurse Practitioner Family
DX: B35.1 Tinea unguium (principal)